=== PATIENT | female | born 1965 | race Two or more races ===

== ENCOUNTER 2022-07-05 16:25 | Emergency (ER) | payer OTHER ==
[~2022-07-05] VITALS: Ht 160 cm; Wt 61.2 kg
[2022-07-05] MEDS ORDERED: LOSARTAN (17:04)
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
--- NOTE | 2022-07-05 18:40 | NUR ---
patient alert, no breakthrough pain x-ray/ct result pending.
[2022-07-05] MEDS ORDERED: AMLODIPINE 5 MG TABLET PO ONE (18:45)
[2022-07-05] MEDS ORDERED: HYDROCODONE/APAP 10-325 MG TABLET PO ONE (18:45)
[2022-07-05] MEDS ORDERED: AMLODIPINE 5 MG TABLET ONE (19:00)
[2022-07-05] MEDS ORDERED: HYDROCODONE/APAP 10-325 MG TABLET ONE (19:01)
--- NOTE | 2022-07-05 20:03 | NUR ---
ACI GIVEN, REMAINS STABLE FOR DISCHARGE HOME, STATES UNDERSTANDING. MD AWARE OF B/P NO NEW ORDERS.
[2022-07-05 20:04] VITALS: BP 189/113
== END 2022-07-05 20:06 | disposition home or self-care (01) ==
LOC: ER 16:25
DX: M79.604 Pain in right leg (principal); S80.811A Abrasion, right lower leg, initial encounter; V03.90XA Pedestrian on foot injured in collision with car, pick-up truck or van, unspecified whether traffic or nontraffic accident, initial encounter; Y92.89 Other specified places as the place of occurrence of the external cause; I10 Essential (primary) hypertension
CPT/HCPCS: 72131; 73030; 73080; 73502; 73562; 73590; 73610; A4663